=== PATIENT | female | born 1990 | race Caucasian/White ===

== ENCOUNTER 2018-05-19 10:59 | Emergency (ER) | payer OTHER ==
[~2018-05-19] VITALS: Ht 165.1 cm; Wt 54.5 kg
[~2018-05-19 10:59] MED LIST: A20IH1 IH; FEXO-58 PO; LEVO75TA4 PO
[2018-05-19 11:14] LABS: GLUCOSE,POINT OF CARE 84 MG/DL (70-110)
[2018-05-19 11:35] VITALS: BP 100/73
== END 2018-05-19 12:04 | disposition home or self-care (01) ==
LOC: EMS 11:03
DX: S60.445A External constriction of left ring finger, initial encounter (principal); M79.89 Other specified soft tissue disorders; E11.9 Type 2 diabetes mellitus without complications; Z88.1 Allergy status to other antibiotic agents; Z88.5 Allergy status to narcotic agent; W49.04XA Ring or other jewelry causing external constriction, initial encounter; Y93.89 Activity, other specified; Y92.89 Other specified places as the place of occurrence of the external cause; Y99.8 Other external cause status
CPT/HCPCS: 99282